=== PATIENT | female | born 1930 ===

== ENCOUNTER 2019-03-16 10:54 | Day surgery (SDC) | payer BC ==
[2019-03-16] MEDS ORDERED: Midazolam* 1 MG/ML 2 ML VIAL (2 MG) ONE (13:06)
[2019-03-16] MEDS ORDERED: Neomycin/Polymy/Dex OPHTH.OIN* 3.5 GM ONE (13:35)
[2019-03-16] MEDS ORDERED: Ketorolac 0.5% OPHTH (NF) 0.5 % 5 ML BTL ONE (13:35)
[2019-03-16] MEDS ORDERED: acetaZOLAMIDE TAB* 250 MG ONE (13:35)
[2019-03-16] MEDS ORDERED: Lidocaine 1% MPF ** 5 ML VIAL ONE (13:35)
[2019-03-16] MEDS ORDERED: Tropicamide 1% OPTH.SOL* BTL ONE (13:35)
[2019-03-16] MEDS ORDERED: Cyclopentolate 1% OPTH.SOL* 2 ML BTL ONE (13:35)
[2019-03-16] MEDS ORDERED: Tetracaine 0.5% OPTH.SOL 4 ML* 1 DROP BTL ONE (13:35)
[2019-03-16] MEDS ORDERED: Phenylephrine OPHTH SOL 2.5%* 2 ML ONE (13:35)
[2019-03-16] MEDS ORDERED: Povidone Iodine 5% OPTH* 30 ML BTL ONE (13:35)
[2019-03-16 14:08] VITALS: BP 147/70
--- NOTE | 2019-03-16 14:13 | OP ---
DATE OF OPERATION: 03/16/19 - [facility] DATE OF : 34 SURGEON: Kei Chao MD ANESTHESIA: Monitored anesthesia care. PRE-OP DIAGNOSIS: Cataract, right eye. POST-OP DIAGNOSIS: Cataract, right eye. OPERATIVE PROCEDURE: Extracapsular cataract extraction of the right eye with intraocular lens implant. IMPLANT: SN60WF 22.0 diopter lens to the right eye. COMPLICATIONS: None. DESCRIPTION OF PROCEDURE: The patient was given phenylephrine 2.5% and cyclopentolate 1% eye drops to the operative eye in the preoperative area. The patient was taken to the operating room where a time-out was taken to identify the correct patient, site, and side of surgery. The patient's right eye was prepped and draped in the usual sterile fashion with 5% Betadine. A second time -out was taken to verify the correct patient, site, and side of surgery, and correct lens implant. A lid speculum was placed to the right eye. A 1-mm paracentesis blade was used to make a clear corneal incision in the superotemporal position. Preservative-free 1% lidocaine was injected into the anterior chamber. A 2.75-mm keratome blade was used to make a triplanar incision at the inferotemporal position. A cystotome initiated a capsulorrhexis , which was completed with Utrata forceps in a continuous and curvilinear manner. Hydrodissection of the lens was performed with BSS on a cannula. The lens could be spun in the capsular bag. The phacoemulsification handpiece was used with a qaebhn-xzu-lnqbehi technique to remove the nucleus. The I/A handpiece then removed the residual cortical lens material. The anterior chamber was then filled with Provisc. The ORA system was then used to verify the correct lens power. The SN60WF 22.0 diopter lens was then injected into the capsular bag. The residual Provisc was removed from the eye with the I/A handpiece. The corneal incisions were hydrated and no leaks occurred at physiologic pressure around 20 mmHg per palpation. The lid speculum was removed and drapes were removed. Maxitrol ointment was placed on the surface of the operative eye. An adhesive patch and shield was then placed on the operative eye. The patient was taken to the postoperative area in stable condition. [id number]/[facility] #: [id number] KAYLEN
== END 2019-03-16 14:00 | disposition home or self-care (01) ==
LOC: OREAST 10:54
PROVIDERS: ATTEND Student in an Organized Health Care Education/Training Program
DX: H25.811 Combined forms of age-related cataract, right eye (principal); F41.9 Anxiety disorder, unspecified; E03.9 Hypothyroidism, unspecified; E78.00 Pure hypercholesterolemia, unspecified; N18.9 Chronic kidney disease, unspecified; I12.9 Hypertensive chronic kidney disease with stage 1 through stage 4 chronic kidney disease, or unspecified chronic kidney disease
CPT/HCPCS: A9270-GY; J2250; V2632

== ENCOUNTER 2019-03-23 06:17 | Day surgery (SDC) | payer BC, MEDICARE ==
[2019-03-23] MEDS ORDERED: Cyclopentolate 1% OPTH.SOL* 2 ML BTL ONE (06:49)
[2019-03-23] MEDS ORDERED: Tetracaine 0.5% OPTH.SOL 4 ML* 1 DROP BTL ONE (06:49)
[2019-03-23] MEDS ORDERED: Lidocaine 1% MPF ** 5 ML VIAL ONE (06:49)
[2019-03-23] MEDS ORDERED: Neomycin/Polymy/Dex OPHTH.OIN* 3.5 GM ONE (06:49)
[2019-03-23] MEDS ORDERED: Povidone Iodine 5% OPTH* 30 ML BTL ONE (06:49)
[2019-03-23] MEDS ORDERED: Tropicamide 1% OPTH.SOL* BTL ONE (06:49)
[2019-03-23] MEDS ORDERED: Phenylephrine OPHTH SOL 2.5%* 2 ML ONE (06:49)
[2019-03-23] MEDS ORDERED: acetaZOLAMIDE TAB* 250 MG ONE (06:49)
[2019-03-23] MEDS ORDERED: Ketorolac 0.5% OPHTH (NF) 0.5 % 5 ML BTL ONE (06:49)
[2019-03-23] MEDS ORDERED: Midazolam* 1 MG/ML 2 ML VIAL (2 MG) ONE (07:05)
[2019-03-23 09:02] VITALS: BP 153/70
--- NOTE | 2019-03-23 10:06 | OP ---
DATE OF OPERATION: 03/23/19 [facility] DATE OF : 34 SURGEON: Kei Caho MD ANESTHESIA: Monitored anesthesia care. PREOPERATIVE DIAGNOSIS: Cataract, left eye. POSTOPERATIVE DIAGNOSIS: Cataract, left eye. OPERATIVE PROCEDURE: Extracapsular cataract extraction of the left eye with intraocular lens implant. IMPLANT: SN60WF 21.5 diopter lens to the left eye. COMPLICATIONS: None. DESCRIPTION OF PROCEDURE: The patient was given phenylephrine 2.5% and cyclopentolate 1% eye drops to the operative eye in the preoperative area. The patient was taken to the operating room where a time-out was taken to identify the correct patient, site, and side of surgery. The patient's left eye was prepped and draped in the usual sterile fashion with 5% Betadine. A second time -out was taken to verify the correct patient, side, and site of surgery, and correct lens selection. A lid speculum was placed to the left eye. A 1-mm paracentesis blade was used to make a clear corneal incision in the inferotemporal position. Preservative-free 1% lidocaine was injected into the anterior chamber. DisCoVisc was then injected into the anterior chamber. A 2.75 -mm keratome blade was used to make a triplanar incision at the superotemporal position. A cystotome initiated a capsulorrhexis, which was completed with Utrata forceps in a continuous and curvilinear manner. Hydrodissection of the lens was performed with BSS on a cannula. The lens could be spun in a capsular bag. The phacoemulsification handpiece was used with a owqqqy-qzf-qunajjx technique to remove the nucleus. The I/A handpiece then removed the residual cortical lens material. Provisc was then injected to inflate the capsular bag. The ORA system was then used to confirm correct lens implant power. The SN60WF 21.5 diopter lens was then injected into the capsular bag. The residual Provisc was removed from the eye with the I/A handpiece. The corneal incisions were hydrated and no leaks occurred at physiologic pressure around 20 mmHg per palpation. The lid speculum was removed and drapes were removed. Maxitrol ointment was placed to the surface of the operative eye. An adhesive patch and shield was then placed on the operative eye. The patient was taken to the post- operative area in stable condition. [id number]/[facility] #: [id number] KAYLEN
== END 2019-03-23 08:33 | disposition home or self-care (01) ==
LOC: OREAST 06:17
PROVIDERS: ATTEND Student in an Organized Health Care Education/Training Program
DX: H25.812 Combined forms of age-related cataract, left eye (principal); H43.813 Vitreous degeneration, bilateral; I12.9 Hypertensive chronic kidney disease with stage 1 through stage 4 chronic kidney disease, or unspecified chronic kidney disease; F41.9 Anxiety disorder, unspecified; E03.9 Hypothyroidism, unspecified; E78.00 Pure hypercholesterolemia, unspecified; N18.9 Chronic kidney disease, unspecified
CPT/HCPCS: A9270-GY; J2250; V2632